=== PATIENT | male | born 1995 | race Caucasian/White ===

== ENCOUNTER 2018-08-15 07:53 | Emergency (ER) | payer MEDICAID ==
[~2018-08-15] VITALS: Ht 177.8 cm; Wt 100.9 kg
--- NOTE | 2018-08-15 08:01 | NUR ---
PT ARRIVED AMBULATORY TO ROOM 19 WITH FRIEND. PT STATES "COUPLE DAYS AGO REALLY SHARP PAIN IN CHEST AROUND HEART AREA, I WAS BORN WITH HEART MURMUR, I EXPERIENCE PAIN EVERY FEW YEARS SINCE GRADUATING HIGH SCHOOL, FEELS LIKE MY HEART STOPPED THE OTHER DAY, EVERY TIME I STRESS MYSELF OUT THIS PAIN HAPPENS, I SMOKE A LOT OF MARIJUANA TOO AND I'VE BEEN CUTTING BACK AND EVERY SINCE I STOPPED IT'S BEEN DIFFICULT TO BREATHE." PT AAO X 4, VSS, DRESSED IN GOWN AND ATTACHED TO MONITOR. SIDERAILS X [address], CALL LIGHT AND BELONGINGS WITHIN REACH, FRIEND AT BEDSIDE.
[2018-08-15] MEDS ORDERED: LORazepam 1MG TABLET PO ONE (08:30)
[2018-08-15 08:37] LABS: BASOPHILS # (AUTO) 0.01 x10^3/uL (0-0.1); BASOPHILS % (AUTO) 0 % (0-1); EOSINOPHILS # (AUTO) 0.15 x10^3/uL (0-0.4); EOSINOPHILS % (AUTO) 2 % (1-7); LYMPHOCYTES # (AUTO) 1.58 x10^3/uL (1-3.4); LYMPHOCYTES % (AUTO) 21 % (22-44); MD NO; MEAN CORPUSCULAR HEMOGLOBIN 31.7 pg (27.5-34.5); MEAN CORPUSCULAR HGB CONC 33.3 g/dL (33.2-36.2); MEAN PLATELET VOLUME 8.7 fL (7.4-10.4); MONOCYTES # (AUTO) 0.45 x10^3/uL (0.2-0.8); MONOCYTES % (AUTO) 6 % (2-9); NEUTROPHILS % (AUTO) 70 % (42-75); PLATELET COUNT 261 x10^3/uL (130-400); RED BLOOD COUNT 5.31 x10^6/uL (4.38-5.82); RED CELL DISTRIBUTION WIDTH 12.8 % (9.4-14.8)
--- NOTE | 2018-08-15 08:43 | NUR ---
PT MEDICATED PER MD ORDER. PT RESTING COMFORTABLY IN [place], VSS, FALL PRECAUTIONS IN PLACE.
--- NOTE | 2018-08-15 08:45 | NUR ---
PT GAIT STEADY, AMBULATORY TO RESTROOM.
[2018-08-15 08:48] LABS: ALANINE AMINOTRANSFERASE 21 U/L (12-78); ALBUMIN 3.9 g/dL (3.4-5.0); ANION GAP 5 mmol/L (5-15); CALCIUM 9.1 mg/dL (8.5-10.1); CHLORIDE 110 mmol/L (98-107); CREATININE 1.01 mg/dL (0.7-1.3)
[2018-08-15 08:53] LABS: ALKALINE PHOSPHATASE 71 U/L (45-117); BILIRUBIN,TOTAL 0.6 mg/dL (0.2-1.0); TOTAL PROTEIN 6.8 g/dL (6.4-8.2); TROPONIN I < 0.015 ng/mL (0.000-0.045)
[2018-08-15 09:27] VITALS: BP 109/68
--- NOTE | 2018-08-15 09:28 | NUR ---
Patient/Caregiver given discharge instructions and they have confirmed that they understand the instructions. Patient ambulatory with steady gait.
== END 2018-08-15 09:30 | disposition home or self-care (01) ==
LOC: ED 08:36
DX: R07.89 Other chest pain (principal); R11.0 Nausea; R06.02 Shortness of breath; F41.1 Generalized anxiety disorder
CPT/HCPCS: 36415; 71045; 80053; 84484; 85025; 93005; 99284

== ENCOUNTER 2018-08-21 15:33 | Emergency (ER) | payer SELFPAY ==
[~2018-08-21] VITALS: Ht 177.8 cm; Wt 100.9 kg
--- NOTE | 2018-08-21 16:29 | NUR ---
PT REPORTS THAT HE HAS BEEN HAVING CHEST PAIN FOR A FULL MONTH, AND THAT HE ALREADY CAME FOR THIS SAME PROBLEM LAST SATURDAY. PT REPORTS THE PAIN IS A 10/10 AND RADIATES TO THE LEFT FLANK. HE STATES THAT IT WILL ALSO MAKE HIM GAG AND DRY-HEAVE, BUT NOT ACTUALLY VOMIT. PT REPORTS THAT THE MEDICATION WE GAVE HIM LAST TIME DOESN'T REALLY DO MUCH. HAS ROUNDED ON PT.
[2018-08-21] MEDS ORDERED: HYDR50TA13 PO (17:09)
--- NOTE | 2018-08-21 17:14 | NUR ---
ALL RESULTS PENDING. PT APPEARS CALM, SO AT BEDSIDE. PT SAYS THAT HE WOULDN'T MIND TAKING ATIVAN.
--- NOTE | 2018-08-21 18:20 | NUR ---
PT APPEARS CALM, NO SIGNS OF DISTRESS. PLAN OF CARE EXPLAINED TO PT. D DIMER PENDING. VSS.
[2018-08-21 18:50] VITALS: BP 110/59
== END 2018-08-21 18:52 | disposition home or self-care (01) ==
LOC: ED 17:30
DX: R07.89 Other chest pain (principal); F41.1 Generalized anxiety disorder
CPT/HCPCS: 36415; 71045; 85379; 93005; 99284